=== PATIENT | male | born 1955 | race Caucasian/White ===

== ENCOUNTER 2018-09-14 14:33 | Observation (INO) | payer BC, OTHER ==
[2018-09-14] MEDS ORDERED: ASPIRIN 81 MG TAB.CHEW PO ONE (14:44)
[2018-09-14] MEDS ORDERED: MORPHINE SULFATE 2 MG/ML DISP.SYRIN IV ONE (14:59)
[2018-09-14 15:07] LABS: Hematocrit 41.9 % (42.0-52.0); Hemoglobin 14.2 gm/dL (13.5-18.0); Mean Cell Volume 83.8 fl (78-100); Mean Corpuscular Hemoglobin 28.4 pg (27-31); Mean Corpuscular Hgb Conc 33.9 g/dl (32-36); Mean Platelet Volume 9.5 fl (8-11.3); Neutrophil # 6.1 K/mm3 (1.3-6.0); Neutrophil % 87.2 % (42-75.0); Platelet Count 169 K/mm3 (150-450); Red Cell Distribution Width 12.6 % (11.5-14.0); White Blood Count 6.9 K/mm3 (4.0-10.5)
[2018-09-14 15:13] LABS: Prothrombin Time (Patient) 10.2 Seconds (9.0-11.0)
[2018-09-14 15:14] LABS: INR 1.02 INR (0.90-1.10); Partial Thrombolplastin Time 24.2 Seconds (24-32)
--- NOTE | 2018-09-14 15:14 | ERNOTE ---
Chest Pain/Cardiac HPI Date of Service: 09/14/18 Chief Complaint: Chest Pain Time Seen by Provider: 09/14/18 14:40 Source: patient Exam Limitations: no limitations Immunizations: IMMUNIZATION HX Immunizations Up to Date Yes History of Influenza Vaccine No Hx Pneumococcal Vaccination No Allergies/Adverse Reactions: Allergies No Known Allergies Allergy (Verified 09/14/18 14:47) Home Medications: HOME MEDICATIONS Acetaminophen 500 mg PO QID PRN #60 tablet 09/15/18 [Last Taken Unknown] Pantoprazole Sodium [Protonix] 40 mg PO DAILY #30 tablet. 09/15/18 [Last Taken Unknown] Pain Score #1 Pain Score: 10 Narrative: The patient is a 63 year old male who presents for epigastric pain which has been present since 0400. There are associated symptoms of nausea with emesis x1. The patient reports epigastric pain, 10/10. There are no alleviating factors. There are no aggravating factors. Previous treatments have included: none. The past medical history includes: noncontributory. The social history is negative. The patient has had no ill contacts. Patient states that pain awoke him from sleep. Patient was seen and referred to this facility after evaluation at [facility]. Patient at clinic was diaphoretic with report of slight dyspnea. Timing: getting worse Severity/Quality: severe, pressure, sharp Location: epigastric Chest Pain Radiation: back Activities at Onset: sleep Modifying Factors - Improves: Present: nothing Modifying Factors - Worsens: Present: nothing Nitro Today/Relief: no nitro taken today Aspirin Treatment Today: no aspirin today Associated Symptoms: Present: shortness of breath, diaphoresis, nausea, vomiting, back pain. Absent: fever/chills, heartburn, abdominal pain Prior Chest Pain/Cardiac Workup: Reports: no prior cardiac workup Review of Systems - Review of Systems Constitutional: Present: no symptoms reported. Absent: recent illness, fever, fatigue EYE: Present: no symptoms reported ENT: Present: no symptoms reported. Absent: ear pain, nasal drainage, sore throat Respiratory: Present: no symptoms reported. Absent: shortness of breath, cough Cardiology: Present: no symptoms reported. Absent: chest pain Gastrointestinal/Abdominal: Present: nausea, vomiting, abdominal pain. Absent: diarrhea Genitourinary: Present: no symptoms reported. Absent: dysuria Musculoskeletal: Present: back pain Skin: Present: no symptoms reported. Absent: rash Neurological: Present: no symptoms reported Endocrine: Present: no symptoms reported Hematologic/Lymphatic: Present: no symptoms reported Psych: Present: no symptoms reported All Other Systems: All systems neg except as marked Medical History (Last Reviewed 09/14/18 @ 16:10 by HUA Pyle) Hx of malignant skin melanoma Family History: Family History (Last Reviewed 09/14/18 @ 16:10 by HUA Pyle) Father Hx of cardiac disorder Social History: Preferred Language Romanian Do you have any orthodox or Yes: yazidi cultural preference? Alcohol Use none Drug Use none No Social History Section defined Physical Exam - Physical Exam General Appearance: Present: wd/wn, alert, mild distress Head Exam: Present: normal inspection Respiratory: Present: no respiratory distress, normal breath sounds, no accessory muscle use, chest nontender, lungs clear Cardiovascular/Chest: Present: no murmur, bradycardia, irregularly irregular - PAC's Peripheral Pulses: N=norm/S=strong/W=weak/B=bound/A=absent: Radial (R): Normal Gastrointestinal/Abdominal: Present: normal bowel sounds, nondistended, soft, no organomegaly, tenderness - epigastric and RUQ, guarding - RUQ, other - no abdominal bruit noted. Absent: mass Neurological Exam: Present: alert, oriented, normal mood/affect Skin Exam: Present: normal color, warm/dry Progress - Date and Time Seen: Date and Time: 09/14/18 16:40 Discussed plan of care with , requests CTA aorta prior to admission due to location of pain and low risk for CA. 09/14/18 18:00 Discussed care with will admit for chest pain observation. - Results and Orders Patient's Lab Results:: I have reviewed the patient's lab results. - Vital Signs Patient's Vital Signs:: I have reviewed the patient's vital signs. Vital Signs: Vital Signs 09/14/18 14:41 Temperature 36.4 C Pulse Rate 51 L Respiratory Rate 11 L Blood Pressure 157/76 H O2 Sat by Pulse Oximetry 99 - EKG EKG: NSR, other - PAC EKG read: Reviewed by me - X-Ray X-Ray #1 X-Ray: chest Interpretation: Reviewed by me X-ray Comments: X-RAY REPORT ~[id number] RAD/Chest PA & Lateral *~ Exam Date: 09/14/2018 15:05 Ordering Physician: Colette Gomez HISTORY: Chest Pain. Additional history from technologist: No additional history. TECHNIQUE: PA and lateral views of the chest were obtained. 3 images. COMPARISONS: None Available FINDINGS: Chest PA Lateral * Asymmetrically inflated lung volume, with decreased right lung volume, with elevated right hemidiaphragm. No consolidation or mass. No significant vascular congestion suggested. No pneumothorax or pleural fluid collections. Cardiac silhouette within normal limits. Mild tortuosity of the thoracic aorta noted, with overlying atherosclerotic vascular calcifications. Trachea is in normal position. Bones show degenerative changes of the spine. IMPRESSION: 1. No definite focal acute cardiopulmonary finding. 2. Elevated right hemidiaphragm, which is of unknown clinical significance. Consider right-sided diaphragmatic paralysis. Other considerations also include right lung volume loss due to prior surgery, or elevation of the right hemidiaphragm due to intra-abdominal process (e.g. hepatomegaly, hepatic mass). If patient has any outside imaging available, direct comparisons would be helpful. Otherwise, consider additional evaluation as needed. Electronically signed by Man Barrera M.D.. - CT/Ultrasound CT/Ultrasound Narrative: X-RAY REPORT ~[id number] CT/CTA Aorta~ Exam Date: 09/14/2018 16:53 Ordering Physician: Colette Gomez Indication: Chest pain started this morning, epigastric pain. Technique: A CT angiogram of the thoracic aorta, abdominal aorta, iliac vessels and carried through the proximal thighs was performed per protocol. Coronal and sagittal reformatted images are provided. Additionally, coronal and sagittal MIP images are submitted. Comparison: Chest radiograph earlier the same day Findings: The noncontrast enhanced images demonstrate no evidence of an intramural hematoma. There is no evidence of an aortic aneurysm or dissection. The celiac artery, SMA and JAYESH are patent. The bilateral renal arteries are patent. The main pulmonary artery is normal in caliber. There is no axillary or supraclavicular lymphadenopathy. There are small calcified mediastinal lymph nodes, likely remote granulomatous disease. There is no mediastinal or retrocrural lymphadenopathy. The heart and pericardium are normal. The lungs demonstrate bibasilar dependent atelectasis. There is a 4 mm indeterminate pulmonary nodule left lung base (series 7, image 51) the bilateral lung apices are excluded from the [id number]. There is no pleural effusion or pneumothorax. The liver is normal in size and attenuation without focal lesion. The spleen, bilateral adrenal glands, bilateral kidneys and pancreas are normal. There is cholelithiasis. Normal caliber bile ducts. There is a small hiatal hernia. The stomach is partially distended and appears normal. The small and large bowel are normal in caliber. There is no lymphadenopathy. There is an age-indeterminate but chronic appearing compression fracture of the T11 vertebral body. IMPRESSION: 1. No evidence of an intramural hematoma, aneurysm or dissection. 2. 4 mm indeterminate pulmonary nodule in the left lung base. Recommend follow- up per Fleischner criteria below. 3. Cholelithiasis. Normal caliber bile ducts. 4. Age-indeterminate but chronic appearing compression fracture of the T11 vertebral body. Recommend correlation with point tenderness. [employer] 2017 GUIDELINES FOR MANAGEMENT OF INCIDENTALLY DETECTED PULMONARY NODULES IN ADULTS FOR SOLID NODULES Single Nodule For Low Risk: < 6 mm: No routine follow-up. 6-8 mm: CT at 6-12 months, then consider CT at 18-24 months. > 8 mm: Consider CT, PET CT, or tissue sampling at 3 months. For High Risk: < 6 mm: Optional CT at 12 months, for patient with suspicious nodule morphology, upper lobe location, or both. 6-8 mm: CT at 6-12 months, then consider CT at 18-24 months. > 8 mm: Consider CT, PET CT, or tissue sampling at 3 months. Multiple Nodules (use most suspicious nodule as guide to management) For Low Risk: < 6 mm: No routine follow-up. 6-8 mm: CT at 3-6 months, then consider CT at 18-24 months. > 8 mm: CT at 3-6 months, then consider CT at 18-24 months. For High Risk: < 6 mm: Optional CT at 12 months, for patient with suspicious nodule morphology, upper lobe location, or both. 6-8 mm: CT at 3-6 months, then consider CT at 18-24 months. > 8 mm: CT at 3-6 months, then consider CT at 18-24 months. FOR SUB-SOLID NODULES Single Nodule For Ground Glass: < 6 mm: No routine follow-up. > or = 6 mm: CT at 6-12 months to confirm persistence, then CT every 2 years until 5 years. For Part Solid: < 6 mm: No routine follow-up. > or = 6 mm: CT at 3-6 months to confirm persistence. If unchanged and solid component remains < 6 mm, annual CT should be performed for 5 years. Multiple Nodules < 6 mm: CT at 3-6 months. If stable, consider CT at 2 and 4 years. > or = 6 mm: CT at 3-6 months. Subsequent management based on the most suspicious nodule(s). Note: - Low Risk = young age, less smoking, smaller nodule size, regular margins, and location in an area other than the upper lobe. - High Risk = older age, heavy smoking, larger nodule size, irregular or spiculated margins, and upper lobe location. Presence of emphysema or fibrosis is an independent risk factor for malignancy. Note: These guidelines do NOT apply to patients younger than 35 years, patients undergoing lung cancer screening, patients with immunosuppression, or patients with known or suspected primary cancer. Electronically signed by Alicia Gold D.O.. - Progress/Reassessment Chief Complaint: Chest Pain Progress:: Improved Departure Clinical Impression: Chest pain Qualifiers: Chest pain type: unspecified Qualified Code(s): R07.9 - Chest pain, unspecified - Departure Disposition: Still a patient Condition: Good
[2018-09-14 15:19] LABS: ALT 36 U/L (19-67); AST 15 U/L (0-48); Alkaline Phosphatase * 76 U/L (50-170); Amylase * 28 U/L (25-115); Anion Gap 12.2 mmol/L (6.8-13.8); BUN/Creatinine Ratio 11.2 (9.0-21.6); Bilirubin, Total 0.5 mg/dL (0.0-1.1); Blood Urea Nitrogen 11 mg/dL (6-23); Ca. Corrected For Albumin 8.9 mg/dL (8.4-10.2); Calcium * 9.2 mg/dL (7.9-10.9); Carbon Dioxide 28.5 mmol/L (24-32.6); Chloride 102 mmol/L (97-106); Glucose * 131 mg/dL (70-110); Lipase 110 U/L (73-393); Potassium 3.7 mmol/L (3.4-4.6); Sodium 139 mmol/L (132-142); Total Protein 7.6 gm/dL (6.2-8.2)
[2018-09-14 15:21] LABS: Troponin I Less than 0.017 ng/mL (0.00-0.10)
[2018-09-14] MEDS ORDERED: NITROGLYCERIN 0.4 MG/TAB BTL SL ONE ×2 (15:34→15:45)
[2018-09-14] MEDS ORDERED: ONDANSETRON HCL/PF 2 MG/ML VIAL ONE (15:56)
[2018-09-14] MEDS ORDERED: ONDANSETRON HCL/PF 2 MG/ML VIAL IV ONE (15:56)
[2018-09-14] MEDS ORDERED: BELLADONNA ALKALOIDS/PHENOBARB 60 ML BTL PO ONE (16:07)
[2018-09-14] MEDS ORDERED: MAG HYDROX/ALUMINUM HYD/SIMETH 30 ML UDC PO ONE (16:07)
[2018-09-14] MEDS ORDERED: LIDOCAINE HCL 20 ML UDC PO ONE (16:07)
[2018-09-14] MEDS ORDERED: ROSUVASTATIN CALCIUM 20 MG TABLET PO STA (18:17)
--- NOTE | 2018-09-14 19:29 | HP ---
Chief Complaint - Chief Complaint Date of Service: 09/14/18 Time of Service: 19:22 Chief Complaint: epigastric pain History of Present Illness: Te Drake, is a 63-year-old white male, who usually that not see any doctor, without significant past medical history, who was admitted on 09/14/2018 because of epigastric pain. This morning the patient started having epigastric pain, sharp, 10 over 10, radiating to his back. He says that it was started on his left upper quadrant and then go to the epigastric area and then also would sometimes go to the right upper quadrant. It is associated with nausea but no vomiting. He did not have any constipation or diarrhea, no fever or chills. In the emergency room his EKG showed normal sinus rhythm with PACs , with minimal voltage criteria for left ventricular hypertrophy. His troponin was negative. He had a CT angiogram which showed no aneurysm, a 4 mm pulmonary nodule in the left lower lung base, cholelithiasis with normal bile duct, and a T11 compression deformity age indeterminate.. He Was given nitroglycerin, aspirin, all of which did not give him relief. He was given a GI cocktail and his pain is down to 5/10. He was admitted under our chest pain protocol. 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 Smoking Status Never smoker Have you smoked in the past 12 No months Do you dip or chew tobacco No Alcohol Use none Drug Use none No Social History Section defined Review Of Systems (GEN) - Review of Systems Generalized/Overall Review: Absent: Weakness, Chills, Fever EENTM: Absent: Blurred Vision Respiratory: Absent: Cough, Shortness of Breath, Wheezing Cardiac: Absent: Chest Pain, Edema, Palpitations Abdominal: Present: Nausea, Abdominal Pain - epigatric. Absent: Vomiting Genitourinary: Absent: Urgency, Frequency Musculoskeletal: Present: Back Pain. Absent: Joint Pain Immunizations: IMMUNIZATION HX Immunizations Up to Date Yes History of Influenza Vaccine No Hx Pneumococcal Vaccination No Allergies/Adverse Reactions: Allergies Allergy/AdvReac Type Severity Reaction Status Date / Time No Known Allergies Allergy Verified 09/14/18 14:47 Home Medications: HOME MEDICATIONS NK [No Home Medication] 06/15/14 [Last Taken Unknown] Exam - Exam Vital Signs: Vital Signs - Last Taken Temp 36.7 C 09/14/18 19:19 Pulse 53 L 09/14/18 19:19 Resp 15 09/14/18 19:19 BP 132/67 09/14/18 19:19 Pulse Ox 100 09/14/18 19:19 Constitutional: Present: Alert, Oriented x3, Cooperative ENT Exam: Present: hearing grossly normal Eye Exam: bilateral eye: normal inspection, PERRL, EOMI Neck: Present: supple Back Exam: Present: no CVA tenderness Respiratory: Present: normal breath sounds, No rales, No wheezing Cardiovascular/Chest: Present: regular rate, rhythm, no JVD, no murmur Abdomen: Present: Normal bowel sounds, soft, nondistended - epigastric area, tender, negative Adorno sign Extremity: Present: no pedal edema, no calf tenderness Diagnostic Studies: Abnormal Lab Results 09/14/18 09/14/18 Range/Units 14:52 14:52 Hct 41.9 L (42.0-52.0) % Neutrophils % 87.2 H (42-75.0) % Lymphocytes % 8.4 L (20-51) % Neutrophils # 6.1 H (1.3-6.0) K/mm3 Lymphocytes # 0.58 L (1.5-3.5) k/mm3 Random Glucose 131 H (70-110) mg/dL Laboratory Results WBC 6.9 K/mm3 (4.0-10.5) 09/14/18 14:52 RBC 5.00 M/mm3 (4.7-6.0) 09/14/18 14:52 Hgb 14.2 gm/dL (13.5-18.0) 09/14/18 14:52 Hct 41.9 % (42.0-52.0) L 09/14/18 14:52 MCV 83.8 fl (78-100) 09/14/18 14:52 MCH 28.4 pg (27-31) 09/14/18 14:52 MCHC 33.9 g/dl (32-36) 09/14/18 14:52 RDW 12.6 % (11.5-14.0) 09/14/18 14:52 Plt Count 169 K/mm3 (150-450) 09/14/18 14:52 MPV 9.5 fl (8-11.3) 09/14/18 14:52 Immature Gran % (Auto) 0.30 % (0.001-0.429) 09/14/18 14:52 Immature Gran # (Auto) 0.02 K/mm3 (0.000-0.0310) 09/14/18 14:52 Neutrophils % 87.2 % (42-75.0) H 09/14/18 14:52 Lymphocytes % 8.4 % (20-51) L 09/14/18 14:52 Monocytes % 4.0 % (0.0-9) 09/14/18 14:52 Eosinophils % 0.0 % (0.0-3.0) 09/14/18 14:52 Basophils % 0.1 % (0.0-1.0) 09/14/18 14:52 Nucleated RBC % 0.0 k/mm3 (0-1) 09/14/18 14:52 Neutrophils # 6.1 K/mm3 (1.3-6.0) H 09/14/18 14:52 Lymphocytes # 0.58 k/mm3 (1.5-3.5) L 09/14/18 14:52 Monocytes # 0.3 k/mm3 (0.0-1.0) 09/14/18 14:52 Eosinophils # 0.0 k/mm3 (0.0-0.7) 09/14/18 14:52 Absolute Basophils 0.0 k/mm3 (0.0-0.1) 09/14/18 14:52 PT 10.2 Seconds (9.0-11.0) 09/14/18 14:52 INR (Anticoag Therapy) 1.02 INR (0.90-1.10) 09/14/18 14:52 PTT (Brooke) 24.2 Seconds (24-32) 09/14/18 14:52 D-Dimer 0.38 ug/mL (0.19-0.49) 09/14/18 14:52 Sodium 139 mmol/L (132-142) 09/14/18 14:52 Plasma Sodium 139 mmol/L (130-142) 09/14/18 14:52 Potassium 3.7 mmol/L (3.4-4.6) 09/14/18 14:52 Chloride 102 mmol/L (97-106) 09/14/18 14:52 Carbon Dioxide 28.5 mmol/L (24-32.6) 09/14/18 14:52 Anion Gap 12.2 mmol/L (6.8-13.8) 09/14/18 14:52 BUN 11 mg/dL (6-23) 09/14/18 14:52 Creatinine 0.98 mg/dL (0.4-1.4) 09/14/18 14:52 Est GFR (Non-Af Amer) 82 mL/min (60-130) 09/14/18 14:52 BUN/Creatinine Ratio 11.2 (9.0-21.6) 09/14/18 14:52 Random Glucose 131 mg/dL (70-110) H 09/14/18 14:52 Calcium 9.2 mg/dL (7.9-10.9) 09/14/18 14:52 Calcium Adj for Albumin 8.9 mg/dL (8.4-10.2) 09/14/18 14:52 Total Bilirubin 0.5 mg/dL (0.0-1.1) 09/14/18 14:52 AST 15 U/L (0-48) 09/14/18 14:52 ALT 36 U/L (19-67) 09/14/18 14:52 Alkaline Phosphatase 76 U/L (50-170) 09/14/18 14:52 Troponin I Less than 0.017 ng/mL (0.00-0.10) 09/14/18 14:52 Total Protein 7.6 gm/dL (6.2-8.2) 09/14/18 14:52 Albumin 4.0 gm/dl (3.4-5.0) 09/14/18 14:52 Amylase 28 U/L (25-115) 09/14/18 14:52 Lipase 110 U/L (73-393) 09/14/18 14:52 Assessment/Plan - Assessment/Plan (1) Epigastric abdominal pain Assessment: likely PUD/Acute Gastritis r/o due to cholelithiasis r/o ACS. will start IV Protonix. will follow up with EKG and troponin. Problem: Acute (2) Cholelithiasis Assessment: diagnosed with GB stone 10 years ago. Problem: Chronic Qualifiers: Cholelithiasis location: gallbladder Cholecystitis presence: without cholecystitis Biliary obstruction: without biliary obstruction Qualified Code(s): K80.20 - Calculus of gallbladder without cholecystitis without obstruction (3) History of skin cancer Assessment: s/p excision of melanoma Problem: Acute (4) Pulmonary nodule Problem: Acute (5) Compression fracture of thoracic vertebra Assessment: old, h/o fall 1995 Problem: Chronic
[2018-09-14] MEDS ORDERED: ROSUVASTATIN CALCIUM 10 MG TABLET ONE (19:43)
[2018-09-14] MEDS ORDERED: PANTOPRAZOLE SODIUM 40 MG in NORMAL SALINE 100 ML IV SCH (19:45)
[2018-09-14] MEDS ORDERED: ONDANSETRON HCL/PF 2 MG/ML VIAL IV PRN (19:45)
[2018-09-14] MEDS ORDERED: MORPHINE SULFATE 4 MG/ML SYRG IV PRN (19:46)
[2018-09-14] MEDS ORDERED: NITROGLYCERIN 0.4 MG/TAB BTL SL PRN (19:46)
[2018-09-15] MEDS ORDERED: MORPHINE SULFATE 10 MG/ML SYRG IV PRN (06:28)
--- NOTE | 2018-09-15 08:43 | DS ---
(1) Epigastric abdominal pain Diagnosis(s): AMI ruled out. Likely acute gastritis. Problem: Acute (2) Cholelithiasis Problem: Chronic Qualifiers: Cholelithiasis location: gallbladder Cholecystitis presence: without cholec ystitis Biliary obstruction: without biliary obstruction Qualified Code(s): K80.20 - Calculus of gallbladder without cholecystitis without obstruction (3) History of skin cancer Problem: Acute (4) Pulmonary nodule Problem: Acute (5) Compression fracture of thoracic vertebra Problem: Chronic Description of Stay: Te Drake, is a 63-year-old white male, who usually that not see any d octor, without significant past medical history, who was admitted on 09/14/2018 because of epigastric pain. This morning the patient started having epigastric pain, sharp, 10 over 10, radiating to his back. He says that it was started on his left upper quadrant and then go to the epigastric area and then also would sometimes go to the right upper quadrant. It is associated with nausea but no vomiting. He did not have any constipation or diarrhea, no fever or chills. In the emergency room his EKG showed normal sinus rhythm with PACs , with minimal voltage criteria for left ventricular hypertrophy. His troponin was negative. He had a CT angiogram which showed no aneurysm, a 4 mm pulmonary nodule in the left lower lung base, cholelithiasis with normal bile duct, and a T11 compression deformity age indeterminate.. He Was given nitroglycerin, aspirin, all of which did not give him relief. He was given a GI cocktail and his pain is down to 5/10. He was admitted under our chest pain protocol. He ruled out for AMI. He was given IV protonix. This morning he says he no longer has abdominal pain. As he does not have the risk factors , will defer doing a stress test on out patient basis. WIll continue with PPI for now and he may need an EGD depending progress. He may also need US and HIDA scan if his epigastric discomfort does not resolved. Procedures Performed: none Results and Findings: Lab Pending Results 09/14/18 14:52: WBC 6.9, RBC 5.00, Hgb 14.2, Hct 41.9 L, MCV 83.8, MCH 28.4, MCHC 33.9, RDW 12.6, Plt Count 169, MPV 9.5, Immature Gran % (Auto) 0.30, Immature Gran # (Auto) 0.02, Neutrophils % 87.2 H, Lymphocytes % 8.4 L, Monocytes % 4.0, Eosinophils % 0.0, Basophils % 0.1, Nucleated RBC % 0.0, Neutrophils # 6.1 H, Lymphocytes # 0.58 L, Monocytes # 0.3, Eosinophils # 0.0, Absolute Basophils 0.0 09/14/18 14:52: PT 10.2, INR (Anticoag Therapy) 1.02, PTT (Grimes) 24.2 09/14/18 14:52: Sodium 139, Plasma Sodium 139, Potassium 3.7, Chloride 102, Carbon Dioxide 28.5, Anion Gap 12.2, BUN 11, Creatinine 0.98, Est GFR (Non-Af Amer) 82, BUN/Creatinine Ratio 11.2, Random Glucose 131 H, Calcium 9.2, Calcium Adj for Albumin 8.9, Total Bilirubin 0.5, AST 15, ALT 36, Alkaline Phosphatase 76, Troponin I Less than 0.017, Total Protein 7.6, Albumin 4.0, Amylase 28, Lipase 110 09/14/18 14:52: D-Dimer 0.38 09/15/18 00:35: Troponin I Less than 0.017 Discharge Location: Home Disposition: Home self-care Condition: Good Discharge Activity: Activity as tolerated Discharge Diet: Low fat/chol, Other - bland diet Additional Patient Instructions (free text): Follow up with a PCP of his choice. May follow up with me for now until he finds one in 2 weeks . Prescriptions (Any new or edited meds): Acetaminophen 500 mg PO QID PRN #60 tablet PRN Reason: Pain Pantoprazole Sodium [Protonix] 40 mg PO DAILY #30 tablet. Complete Home Medications List: Complete Home Medication List: Acetaminophen 500 mg PO QID PRN #60 tablet 09/15/18 Pantoprazole Sodium [Protonix] 40 mg PO DAILY #30 tablet. 09/15/18
[2018-09-15 09:50] VITALS: BP 143/78
== END 2018-09-15 10:30 | disposition home or self-care (01) ==
LOC: MS 14:33 → ER 14:33 → MS 18:55
PROVIDERS: ADMIT Internal Medicine; ATTEND Internal Medicine
DX: R07.9 Chest pain, unspecified
CPT/HCPCS: 36415; 71020; 71046; 71275; 74175; 80053; 82150; 83690; 84484; 85025; 85379; 85610; 85730; 90471; 90686; 93005; 96374; 96375; 96376; 99285; G0378; J2405